=== PATIENT | male | born 2000 | race Caucasian/White ===

== ENCOUNTER 2020-01-02 16:33 | Observation (INO) ==
[2020-01-02] MEDS ORDERED: 0.9 % Sodium Chloride 1,000 ML IVC ONE ×2 (16:41→16:43)
[2020-01-02 17:11] LABS: Basophils % 0.4 %; Eosinophils # 0.1 K/mcL (0.0-0.6); Eosinophils % 0.9 %; Hemoglobin 16.5 g/dL (12.9-16.9); Immature Granulocytes % 0.6 % (0-4); Lymphocytes # 2.4 K/mcL (0.6-4.6); Lymphocytes % 23.6 %; Mean Corpuscular Hemoglobin 29.4 pg (28.0-33.3); Mean Platelet Volume 10.2 fL (9.4-12.4); Monocytes # 0.8 K/mcL (0.0-1.3); Monocytes % 8.3 %; Neutrophils # 6.7 K/mcL (1.6-8.9); Platelet Count 202 K/mcL (140-400); Red Blood Count 5.62 M/mcL (4.19-5.50); Red Cell Distribution Width 12.7 % (11.5-14.5); Segmented Neutrophils % 66.2 %; White Blood Count 10.1 K/mcL (4.3-11.1)
[2020-01-02 17:32] LABS: Acetaminophen < 10 mcg/mL (10-20); Alanine Aminotransferase 37 Units/L (7-52); Albumin 4.7 g/dL (3.5-5.7); Alkaline Phosphatase 76 Units/L (34-104); Aspartate Amino Transferase 21 Units/L (13-39); BUN/Creatinine Ratio 8 (6-26); Bilirubin,Direct 0.2 mg/dL (0.0-0.2); Bilirubin,Indirect 0.3 mg/dL (0.0-1.0); Bilirubin,Total 0.5 mg/dL (0.3-1.0); Blood Urea Nitrogen 10 mg/dL (6-20); Calcium 9.1 mg/dL (8.6-10.3); Carbon Dioxide 23 mEq/L (23-29); Chloride 104 mEq/L (98-107); Ethanol < 10 mg/dL (Less than 10); Globulin 2.3 g/dL (2.4-3.5); Glucose 99 mg/dL (70-105); Osmolality,Calculated 287 (280-300); Potassium 3.7 mEq/L (3.5-5.1); Salicylate < 2.5 mg/dL (15.0-30.0); Sodium 139 mEq/L (136-145); eGFR For African Americans > 60 (> 60); eGFR For Non-African Americans > 60 (> 60)
[2020-01-02 18:04] LABS: Bilirubin,Urine Negative (Negative); Blood,Urine Trace (Negative); Clarity,Urine Clear (Clear); Color,Urine Light-Yellow (Yellow); Glucose,Urine (UA) Normal (Normal); Ketones,Urine Trace mg/dL (Negative); Leukocyte Esterase,Urine Negative (Negative); Mucus,Urine Few per lpf (None-Few); Nitrite,Urine Negative (Negative); Protein,Urine 30 mg/dL (Neg-Trace); Specific Gravity,Urine > 1.030 (1.010-1.025); Urobilinogen,Urine Normal (Normal); WBC,Urine 0-3 per hpf (0-3)
[2020-01-02 18:15] LABS: Amphetamine Screen,Urine Negative ng/mL (Cutoff=1000); Barbiturate Screen,Urine Negative ng/mL (Cutoff=200); Benzodiazepines Screen,Urine Negative ng/mL (Cutoff=200); Cannabinoid Screen,Urine Positive ng/mL (Cutoff = 50); Cocaine Screen,Urine Negative ng/mL (Cutoff= 300); Opiate Screen,Urine Negative ng/mL (Cutoff=300); Phencyclidine Screen,Urine Negative ng/mL (Cutoff=25)
[2020-01-02] MEDS ORDERED: Ondansetron ODT 4 MG TAB.RAPDIS SL ONE (18:40)
[2020-01-02] MEDS ORDERED: hydrOXYzine pamoate 25 MG CAPSULE PO PRN (20:57)
[2020-01-02] MEDS ORDERED: Acetaminophen 325 MG TABLET PO PRN (20:57)
[2020-01-02] MEDS ORDERED: Haloperidol Lactate 5 MG/ML VIAL IM PRN (20:57)
[2020-01-02] MEDS ORDERED: *HR* LORazepam 2 MG/ML VIAL IM PRN (20:57)
[2020-01-02] MEDS ORDERED: haloperidoL 5 MG TABLET PO PRN (20:57)
[2020-01-02] MEDS ORDERED: *HR* LORazepam 1 MG TABLET PO PRN (20:57)
[2020-01-02] MEDS ORDERED: MOM Conc 10 ML UD.LIQ PO PRN (23:19)
[2020-01-02] MEDS ORDERED: traZODone 50 MG TABLET PO PRN (23:19)
[2020-01-02] MEDS ORDERED: Mag Hydrox/Al Hydrox/Simeth 30 ML UDC PO PRN (23:19)
[2020-01-03] MEDS: Nicotine 2 MG GUM BC PRN ×2 (09:19→11:18)
[2020-01-03 09:44] VITALS: BP 145/84
== END 2020-01-03 14:30 | disposition home or self-care (01) ==
LOC: EMEROOARM 16:33 → INTOOBSV 20:50 → 1ANU 20:50
PROVIDERS: ADMIT Psychiatry & Neurology Psychiatry; ATTEND Psychiatry & Neurology Psychiatry